=== PATIENT | male | born 1995 | race Caucasian/White ===

== ENCOUNTER 2018-12-26 10:06 | Emergency (ER) | payer MEDICAID ==
[~2018-12-26] VITALS: Ht 190.5 cm; Wt 93.0 kg
--- NOTE | 2018-12-26 10:21 | NUR ---
DEJUAN KIMBLE AT BEDSIDE FOR MSE.
[2018-12-26] MEDS ORDERED: HYDROCODONE/APAP 5-325MG TABLET PO ONE (11:30)
[2018-12-26] MEDS ORDERED: KETOROLAC TROMETHAMINE 60 MG INJ IM ONE ×2 (11:30→11:32)
[2018-12-26] MEDS ORDERED: DIAZEPAM 2 MG TABLET PO ONE (11:30)
[2018-12-26] MEDS ORDERED: DIAZEPAM 5 MG TABLET ONE (11:36)
[2018-12-26] MEDS ORDERED: HYDROCODONE/APAP 5-325MG TABLET ONE (11:36)
[2018-12-26 11:41] VITALS: BP 131/69
--- NOTE | 2018-12-26 11:41 | NUR ---
Patient discharged to home in stable conditon. Written and verbal after care instructions given. Patient verbalizes understanding of instructions. ALL BELONGINGS W/ PT. PT SELF-AMBULATED W/O DIFFICULTY. PT WILL BE DRIVEN HOME BY FATHER IN PRIVATE VEHICLE.
== END 2018-12-26 11:42 | disposition home or self-care (01) ==
LOC: ER 10:06
DX: S16.1XXA Strain of muscle, fascia and tendon at neck level, initial encounter (principal); S39.012A Strain of muscle, fascia and tendon of lower back, initial encounter; S20.212A Contusion of left front wall of thorax, initial encounter; R51 Headache; V43.52XA Car driver injured in collision with other type car in traffic accident, initial encounter; Y93.89 Activity, other specified; Y92.410 Unspecified street and highway as the place of occurrence of the external cause; Y99.8 Other external cause status
CPT/HCPCS: 70450; 71101; 72110; 72125; 96372; 99284; J1885; A4663